=== PATIENT | female | born 1990 | race Caucasian/White ===

== ENCOUNTER → 2022-11-14 09:22 | Outpatient (CLI) | payer SELFPAY ==
--- NOTE | 2022-11-14 09:00 | DI.RAD_ITS ---
Exam(s) XR FOOT RT COMPLETE EXAM: XR FOOT RT COMPLETE CLINICAL HISTORY: right foot pain, injury M79.671 PAIN RT FOOT. TECHNIQUE: 2D digital imaging was performed of the right foot. Three images were obtained. AP, obl ique and lateral views were obtained. COMPARISON: No exams were available for comparison FINDINGS: BONES: No acute fracture is present. No bony destructive lesion is seen. There is an enthesophyte at the posterior calcaneus. JOINTS: No dislocation present. SOFT TISSUE: Normal. IMPRESSION: No acute fracture or dislocation. DATA REPOSITORY: RADIATION DOSE DELIVERED:
--- NOTE | 2022-11-14 09:00 | DI.RAD_ITS ---
Exam(s) XR CERVICAL SPINE COMP 4-5V EXAM: XR CERVICAL SPINE COMP 4-5V CLINICAL HISTORY: neck pain, fall down stair M54.2 CERVICALGIA. TECHNIQUE: 2D digital imaging was performed. Six images were obtained. AP, odontoid, lateral and brianda ateral oblique images were obtained. COMPARISON: No exams were available for comparison FINDINGS: The odontoid is intact. The lateral masses are well aligned. There is normal alignment of the cervi papa spine. The vertebral bodies, disc spaces and posterior elements are well maintained. No acute f racture or subluxation is present. No significant neural foraminal stenosis is present. The cervical thoracic junction is well maintained. The prevertebral soft tissues are unremarkable. Lung apices a re clear. IMPRESSION: Unremarkable radiographs of the cervical spine. DATA REPOSITORY: RADIATION DOSE DELIVERED:
--- OUTSIDE RECORDS SUMMARY | 2022-11-14 09:24 | XMS_ITS | CCD ---
Author Name Unknown Address [address] [place] [address] [id number] Organization Unknown Address [address] [place] [address] [phone] Care Team Providers Care Fly Tier Name Role Phone [facility] Attending Physician [phone] [facility] Er Physician 4 [phone] BROOK Roberson Registered Nurse [phone] Vital Signs Vital Sign Value Unit Date/Time Recent/Initial ? BMI (Body Mass Index) 37.59 kg/m^2 09/15/2022 17: 12 Initial VS Weight Measured 240 lbs 09/15/2022 17:12 Ini tial VS Height 67 in 09/15/2022 17:12 Initial VS BSA (Body Surface Area) 2.27 m^2 09/15/2022 1 7:12 Initial VS BP Systolic 153 mmHg 09/15/2022 17:12 Initial VS BP Diastolic 93 mmHg 09/15/2022 17:12 Initia l VS Respiratory Rate 18 bpm 09/15/2022 17:12 In itial VS Heart Rate 78 bpm 09/15/2022 17:12 Initial VS O2 % BldC Oximetry 97 % 09/15/2022 17:12 Initial VS Body Temperature 35.9 degrees 09/15/2022 17:12 In itial VS Allergies Allergy Code Allergy Type Reaction Status PINEAPPLE 0 Food allergy Active No Known Drug Allergies 0 No known drug allergies Active Procedures Unknown or Not Available. History of Immunizations Immunization Code Date Tdap 115 09/15/2022 Problems Unknown or Not Available. Results Unknown or Not Available. Active Medications Unknown or Not Available. Medications Administered During Visit Medication Dose Units Frequency Route Date/Time of Last Dose DERMABOND TOPICAL SKIN ADHES KEITH (PEN) 1 KATY X1 TOP 09/15/2022 17:3 8 TETANUS/DIPHT/PERTUS SYR:0.5ML(BOOSTRIX) 0.5 ML X1 IM 09/16/19 18:07 Encounters Encounter Diagnosis Diagnosis Code Start Date Laceration without foreign b gauri of left little finger without damage to nail, initial encounter [id number] 09/15/2022 Social History Smoking Status Code Start Date End Date Never smoker [id number] Patient Decision Aids Unknown or Not Available. Discharge Instructions You were admitted to [facility] on 09/15/2022 16:54 with a principal diagnosis of Laceration without foreign body of left little finger without damage to nail, initial encounter You were discharged from [facility] on 09/15/2022 18:16 Should you have any questions prior to discharge, please contact a member of your healthcare team. If you have left the hospital and have any questions, please contact your primary care physician. Chief Complaint and Reason For Visit Chief Complaint Date of Onset LACERATION ON LEFT PINKY 09/15/2022 Function Status Unknown or Not Available. Plan of Care Unknown or Not Available. Referral/Transition of Care Unknown or Not Available.
== END ==
PROVIDERS: Visit Provider Physician Assistant
DX: M54.2 Cervicalgia (principal); M79.671 Pain in right foot
CPT/HCPCS: 72050; 73630